=== PATIENT | female | born 1975 | race African-American/Black ===

== ENCOUNTER 2018-06-30 19:49 | Emergency (ER) | payer MEDICAID ==
[~2018-06-30] VITALS: Ht 162.6 cm; Wt 88.0 kg
[~2018-06-30 19:49] MED LIST: motrin; norco; tylenol; vicodin
[2018-06-30 22:07] VITALS: BP 118/67
== END 2018-06-30 22:28 | disposition home or self-care (01) ==
LOC: ER 19:49
DX: F23 Brief psychotic disorder (principal)
CPT/HCPCS: 99284

== ENCOUNTER 2024-06-09 19:04 | Emergency (ER) | payer MEDICAID ==
[~2024-06-09] VITALS: Ht 170.2 cm; Wt 93.0 kg
[2024-06-09 19:11] VITALS: O2SAT 97
[2024-06-09 22:39] LABS: CLARITY URINE CLOUDY (CLEAR); COLOR URINE YELLOW (YELLOW); GLUCOSE URINE NEGATIVE (NEGATIVE); KETONES URINE NEGATIVE (NEGATIVE); LEUKOCYTE ESTERASE URINE 2+ (NEGATIVE); NITRITE URINE POSITIVE (NEGATIVE); OCCULT BLOOD URINE 3+ (NEGATIVE); PH URINE 5.5 (4.5-8.0); PROTEIN URINE 2+ (NEGATIVE); SPECIFIC GRAVITY URINE 1.017 (1.005-1.030); UROBILINOGEN URINE 0.2 E.U./dL (0.2-1.0)
[2024-06-09] MEDS: ACETAMINOPHEN 500MG TABLET PO ONE (22:56)
[2024-06-09 23:17] LABS: BACTERIA URINE 3+; RBC URINE TNTC /hpf (0-2); SQUAMOUS EPITHELIAL CELL URINE 1+ /lpf (RARE/1+)
[2024-06-09 23:19] LABS: BASOPHILS % 0.5 % (0.0-2.0); EOSINOPHILS % 0.5 % (0.0-5.0); HEMATOCRIT. 34.3 % (36.0-48.0); HEMOGLOBIN. 11.1 g/dL (12.0-16.0); LYMPHOCYTES % 25.3 % (20.0-50.0); MEAN CORPUSCULAR HGB CONC 32.4 g/dL (31.0-37.0); MEAN CORPUSCULAR VOLUME 89.6 fL (81.0-99.0); MEAN PLATELET VOLUME 9.4 fl (7.4-10.4); MONOCYTES % 7.2 % (2.0-8.0); NEUTROPHILS % 66.5 % (40.0-76.0); PLATELET 260 x1000/uL (130-400); RED BLOOD CELL COUNT 3.83 mill/uL (4.2-5.4); RED CELL DISTRIBUTION WIDTH 13.9 % (11.6-14.6); WHITE BLOOD COUNT 7.8 x1000/uL (4.5-11.0)
[2024-06-10] MEDS ORDERED: CEPH500C2 MT (00:30)
[2024-06-10 00:53] VITALS: BP 145/82; PULSE 88; RESP 16; TEMP 37; O2SAT 97
== END 2024-06-10 00:54 | disposition home or self-care (01) ==
LOC: ER 19:04
DX: N39.0 Urinary tract infection, site not specified (principal); D64.9 Anemia, unspecified
CPT/HCPCS: 36415; 81003; 85025; 87077; 87186; 99283